=== PATIENT | female | born 1940 | race Caucasian/White ===

== ENCOUNTER 2016-12-30 20:51 | Emergency (ER) | payer OTHER ==
[~2016-12-30] VITALS: Ht 157.5 cm; Wt 68.0 kg
[2016-12-30 21:21] VITALS: BP 150/76
[2016-12-30] MEDS ORDERED: LORazepam 2MG/ML-1ML VIAL IV ONE (22:30)
== END 2016-12-30 23:30 | disposition home or self-care (01) ==
LOC: EDBD 20:51 → ER 20:57
DX: F41.9 Anxiety disorder, unspecified (principal); F17.210 Nicotine dependence, cigarettes, uncomplicated; R41.82 Altered mental status, unspecified; R55 Syncope and collapse; W18.39XA Other fall on same level, initial encounter; Y93.89 Activity, other specified; Y92.090 Kitchen in other non-institutional residence as the place of occurrence of the external cause; Y99.8 Other external cause status
CPT/HCPCS: 36415; 70450; 80320; 96374; 99285; J2060

== ENCOUNTER 2017-01-07 22:42 | Emergency (ER) | payer OTHER ==
[~2017-01-07] VITALS: Ht 162.6 cm; Wt 65.8 kg
[2017-01-07 23:35] LABS: Basophils # (auto) 0 uL; Basophils % (auto) 0.3 % (0.0-2.0); Eosinophils # (auto) 0 uL; Eosinophils % (auto) 0.3 % (0.0-7.0); Hematocrit 42.7 % (36.0-46.0); Hemoglobin 13.7 g/dL (12.2-16.2); Lymphocytes # (auto) 1.2 uL; Lymphocytes % (auto) 13.6 % (10.0-50.0); Mean Corpuscular Hemoglobin 30.7 pg (28.0-32.0); Mean Platelet Volume 7.7 fL (7.4-10.4); Monocytes # (auto) 0.4 uL; Monocytes % (auto) 4.6 % (0.0-12.0); Neutrophils # (auto) 7.3 uL; Neutrophils % (auto) 81.2 % (37.0-80.0); Platelet Count (auto) 391 10^3/uL (140-450); Red Cell Distribution Width 12.6 % (11.6-16.0)
[2017-01-07 23:55] LABS: Albumin 3.9 g/dL (3.4-5.0); BUN/Creatinine Ratio 18.1; Calcium 8.9 mg/dL (8.5-10.1); Potassium 4.7 mmol/L (3.5-5.1)
[2017-01-07 23:58] LABS: INR 1.03 (0.9-1.15); Partial Thromboplastin Time 23.4 sec (22.64-33.71); Prothrombin Time 10.6 sec (9.37-12.3)
[2017-01-07 23:59] LABS: Bilirubin, Total 0.6 mg/dL (0.2-1.0); Total Protein 7.4 g/dL (6.4-8.2)
[2017-01-08] MEDS ORDERED: TRAZ100T2 PO (02:15)
[2017-01-08] MEDS ORDERED: TEMA30CA PO (02:15)
[2017-01-08 03:48] LABS: Urine Bilirubin Negative (Negative); Urine Blood Negative /uL (Negative); Urine Color Yellow (Yellow); Urine Glucose Normal (Normal); Urine Hyaline Cast MANY /lpf (0 - 2); Urine Ketone 2+ (Negative); Urine Mucus MODERATE (None Seen); Urine Nitrite Negative (Negative); Urine RBC 3 /hpf (0 - 4); Urine Squamous Epithelial Cell MOD /hpf (<5); Urine Urobilinogen Normal (Negative)
[2017-01-08 06:47] VITALS: BP 149/90
[2017-01-08] MEDS: PARoxetine 20 MG TAB PO SCH (10:48)
== END 2017-01-08 18:13 | disposition home or self-care (01) ==
LOC: EDBD 22:42 → ER 22:44
DX: F03.90 Unspecified dementia, unspecified severity, without behavioral disturbance, psychotic disturbance, mood disturbance, and anxiety (principal); F20.9 Schizophrenia, unspecified; N39.0 Urinary tract infection, site not specified; F41.9 Anxiety disorder, unspecified; J45.909 Unspecified asthma, uncomplicated; F17.210 Nicotine dependence, cigarettes, uncomplicated; Z88.2 Allergy status to sulfonamides
CPT/HCPCS: 36415; 70450; 80053; 81001; 84484; 85025; 85610; 85730

== ENCOUNTER → 2018-05-06 | Outpatient (CLI) | payer OTHER ==
[~2018-05-06] MED LIST: TEMA30CA PO; TRAZ100T2 PO
[2018-05-06 08:38] LABS: Basophils # (auto) 0.1 uL; Basophils % (auto) 1.4 % (0.0-2.0); Eosinophils # (auto) 0.1 uL; Eosinophils % (auto) 1.7 % (0.0-7.0); Hematocrit 42.7 % (36.0-46.0); Hemoglobin 14.5 g/dL (12.2-16.2); Lymphocytes # (auto) 1.6 uL; Lymphocytes % (auto) 26.8 % (10.0-50.0); Mean Corpuscular Hemoglobin 32.1 pg (28.0-32.0); Mean Corpuscular Volume 94.6 fL (80.0-100.0); Monocytes # (auto) 0.4 uL; Monocytes % (auto) 6.5 % (0.0-12.0); Neutrophils # (auto) 3.7 uL; Neutrophils % (auto) 63.6 % (37.0-80.0); Platelet Count (auto) 245 10^3/uL (140-450); Red Blood Cells 4.51 10^6/uL (4.0-5.20); White Blood Cell 5.8 10^3/uL (4.4-10.8)
[2018-05-06 09:13] LABS: Albumin 4.3 g/dL (3.4-5.0); BUN/Creatinine Ratio 18.2; Bilirubin, Total 0.7 mg/dL (0.2-1.0); Calcium 8.7 mg/dL (8.5-10.1); Potassium 3.9 mmol/L (3.5-5.1); Total Protein 7.5 g/dL (6.4-8.2)
== END | disposition home or self-care (01) ==
LOC: LAB 08:18
PROVIDERS: ATTEND Physician Assistant
DX: Z00.01 Encounter for general adult medical examination with abnormal findings (principal); I10 Essential (primary) hypertension; F41.1 Generalized anxiety disorder; E78.5 Hyperlipidemia, unspecified; G25.2 Other specified forms of tremor; F32.9 Major depressive disorder, single episode, unspecified
CPT/HCPCS: 36415; 80053; 80061; 82270; 85025

== ENCOUNTER 2019-12-05 13:14 | Inpatient (IN) | payer OTHER ==
[~2019-12-05] VITALS: Ht 160 cm; Wt 49.8 kg
[2019-12-05] MEDS: DOBUTamine 1000MCG/ML 250 ML IV SCH (01:10)
[~2019-12-05 13:14] MED LIST changes: -TRAZ100T2 PO; +TRAZ100T3 PO
[2019-12-05] MEDS ORDERED: FUROSEMIDE 20 MG/2 ML VIAL IV ONE (13:30)
[2019-12-05] MEDS ORDERED: ASPirin 81 mg TAB PO ONE (13:30)
[2019-12-05] MEDS ORDERED: DEXTROSE 50% SYRINGE 50 ML IV ONE (13:37)
[2019-12-05] MEDS ORDERED: ACCU-CHEK COMFORT CURVE STRIP VI ONE ×2 (13:45→14:00)
[2019-12-05] MEDS ORDERED: DEXTROSE (50%) 50ML SYRG IV ONE ×2 (13:45→14:00)
[2019-12-05 14:23] LABS: Basophils # (auto) 0 uL; Eosinophils # (auto) 0 uL; Lymphocytes # (auto) 0.7 uL; Mean Corpuscular Hgb Conc. 30.7 g/dL (32.0-36.0); Monocytes # (auto) 0.4 uL; Neutrophils # (auto) 6.2 uL; Nucleated Red Blood Cells % 0.2 %; Red Cell Distribution Width 19.3 % (11.8-14.3)
[2019-12-05 14:25] LABS: Basophils % (auto) 0.4 % (0.0-2.0); Hematocrit 34.8 % (36.0-46.0); Hemoglobin 10.7 g/dL (12.2-16.2); Lymphocytes % (auto) 9.3 % (10.0-50.0); Mean Corpuscular Hemoglobin 27.6 pg (28.0-32.0); Monocytes % (auto) 5.7 % (0.0-12.0); Neutrophils % (auto) 84.6 % (37.0-80.0); Platelet Count (auto) 307 10^3/uL (140-450); Red Blood Cells 3.87 10^6/uL (4.0-5.20); White Blood Cell 7.3 10^3/uL (4.4-10.8)
[2019-12-05 14:28] LABS: INR 2.15 (0.9-1.15); Partial Thromboplastin Time 33.4 sec (23.64-32.05)
[2019-12-05 14:33] LABS: Albumin 3.1 g/dL (3.4-5.0); Calcium 8.2 mg/dL (8.5-10.1)
[2019-12-05 14:39] LABS: BUN/Creatinine Ratio 10.6
[2019-12-05] MEDS ORDERED: cefTRIAXone 1GM/50ML D5W 50 ML IV ONE (16:45)
[2019-12-05] MEDS ORDERED: AZITHROMYCIN 500MG/ 250ML 250 ML IV ONE (16:45)
[2019-12-05] MEDS ORDERED: MORPHINE SULF INJ 2 MG/ML SYRINGE 1ML IV PRN ×2 (17:00)
[2019-12-05] MEDS ORDERED: NITROGLYCERIN 0.4 MG SL TAB SL PRN (17:00)
[2019-12-05] MEDS ORDERED: LORazepam 2MG/ML-1ML VIAL IV PRN (17:00)
[2019-12-05 17:04] LABS: Lactic Acid w/Reflex 9.2 mmol/L (0.4-2.0)
[2019-12-05] MEDS: FAMOTIDINE (10MG/ML) 2ML VL IV SCH (17:16)
[2019-12-05] MEDS ORDERED: hydrALAZINE HCL 20 MG/ML VL IV PRN (18:00)
[2019-12-05] MEDS ORDERED: LABETALOL HCL 5 MG/ML 4ML SYRINGE IV ONE (18:00)
[2019-12-05] MEDS: NOREPINEPHRINE 8 MG/250ML KIT 250 ML IV SCH (19:12)
[2019-12-05] MEDS: FUROSEMIDE 40 MG/4 ML VIAL IV SCH (19:24)
[2019-12-05] MEDS ORDERED: MIDAZOLAM DRIP 50 mg/50mL 50 ML IV SCH (19:59)
[2019-12-05] MEDS ORDERED: ALBUTEROL SULF 2.5 MG/0.5ML(0.5%) NEB SOLN NEB SCH (20:00)
[2019-12-05] MEDS ORDERED: IPRATROPIUM BROM 0.5 MG/2.5ML INH SOL NEB SCH (20:00)
[2019-12-05] MEDS ORDERED: SUCCINYLCHOLINE CHLORIDE 20 MG/ML 10ML VIAL IV ONE ×2 (20:00→21:00)
[2019-12-05] MEDS ORDERED: ETOMIDATE (2MG/ML) 20ML VIAL IV ONE ×2 (20:01→21:00)
[2019-12-05] MEDS ORDERED: CARVEDILOL 3.125 MG TAB PO SCH (22:00)
[2019-12-05] MEDS ORDERED: SODIUM CHLORIDE 0.9% 1,000 ML IV ONE (22:30)
[2019-12-05 22:59] VITALS: BP 90/43
[2019-12-06] VITALS (17 sets, daily range): BP systolic 82–132; BP diastolic 46–68
[2019-12-06] MEDS: ALBUTEROL SULF 2.5 MG/0.5ML(0.5%) NEB SOLN NEB SCH ×4 (01:00→19:18)
[2019-12-06] MEDS: IPRATROPIUM BROM 0.5 MG/2.5ML INH SOL NEB SCH ×4 (01:00→19:17)
[2019-12-06] MEDS: fentaNYL Drip 2500mCg/250mlNS 250 ML IV SCH ×2 (01:10→07:52)
[2019-12-06] MEDS: FUROSEMIDE 40 MG/4 ML VIAL IV SCH ×2 (06:14→18:11)
[2019-12-06] MEDS: DOBUTamine 1000MCG/ML 250 ML IV SCH ×3 (08:03→21:26)
[2019-12-06 08:25] LABS: Albumin 3.1 g/dL (3.4-5.0); Calcium 7.6 mg/dL (8.5-10.1); Potassium 3.9 mmol/L (3.5-5.1)
[2019-12-06 08:30] LABS: BUN/Creatinine Ratio 13.8; Bilirubin, Total 1.4 mg/dL (0.2-1.0)
[2019-12-06 08:42] LABS: Urine Amorphous Crystal FEW /hpf (None Seen); Urine Bacteria NONE SEEN /hpf (None Seen); Urine Blood 3+ /uL (Negative); Urine Hyaline Cast MANY /lpf (0 - 2); Urine Mucus FEW (None Seen); Urine Specific Gravity 1.024 (1.001-1.035); Urine WBC 26 /hpf (0 - 5)
[2019-12-06 08:46] LABS: Basophils # (auto) 0 uL; Basophils % (auto) 0.2 % (0.0-2.0); Eosinophils # (auto) 0 uL; Hematocrit 36.7 % (36.0-46.0); Hemoglobin 11.4 g/dL (12.2-16.2); Lymphocytes # (auto) 0.6 uL; Lymphocytes % (auto) 5.1 % (10.0-50.0); Mean Corpuscular Volume 87.1 fL (80.0-100.0); Monocytes % (auto) 8.7 % (0.0-12.0); Neutrophils # (auto) 9.8 uL; Nucleated Red Blood Cells % 0.4 %; Platelet Count (auto) 313 10^3/uL (140-450); Red Blood Cells 4.21 10^6/uL (4.0-5.20); Red Cell Distribution Width 18.4 % (11.8-14.3); White Blood Cell 11.4 10^3/uL (4.4-10.8)
[2019-12-06] MEDS: cefTRIAXone 1GM/50ML D5W 50 ML IV SCH (09:01)
[2019-12-06] MEDS ORDERED: BUMETANIDE 2.5mg/10ml (0.25 mg/ml) INJ IV ONE (09:30)
[2019-12-06] MEDS: FAMOTIDINE (10MG/ML) 2ML VL IV SCH (09:33)
[2019-12-06] MEDS: AZITHROMYCIN 500MG/ 250ML 250 ML IV SCH (09:36)
--- NOTE | 2019-12-06 12:00 | NUR ---
WOUND CARE NOTE: PATIENT NOTED TO BE INTUBATED IN THE ER. ADDED PATIENT TO SKIN INTEGRITY MONITORING. PATIENT ADMITTED TO [facility] [place] WITH DIAGNOSIS OF BILATERAL SUBDURAL HEMATOMA. CURRENT COLBY SCORE IS 10. PATIENT IS RESTING ON HOSPITAL BED IN THE ER BED 6. UNABLE TO ASSESS SKIN AT THIS TIME, NURSE UNAVAILABLE. WILL IMPLEMENT SKIN/WOUND CARE PLAN PER PROTOCOL. RECOMMENDATIONS: FREQUENT TURN SCHEDULE Q 2 HOURS, PRN CONDITION PERMITS, WITH PRESSURE REDISTRIBUTION USING PILLOWS/WEDGES, BID/PRN APPLICATION WITH MOISTURE BARRIER CREAM, OPTIFOAM GENTLE SACRAL DRESSING, SKIN/WOUND CARE PLAN, DIETARY CONSULT FOR LOW COLBY SCORE 10, CONTINUED MONITORING BY WOUND CARE TEAM.
[2019-12-06] MEDS: NOREPINEPHRINE 8 MG/250ML KIT 250 ML IV SCH (18:52)
--- NOTE | 2019-12-06 21:00 | NUR ---
FAMILY AT BEDSIDE
[2019-12-07] VITALS (20 sets, daily range): BP systolic 86–112; BP diastolic 43–59
[2019-12-07] MEDS: ALBUTEROL SULF 2.5 MG/0.5ML(0.5%) NEB SOLN NEB SCH ×3 (00:27→12:00)
[2019-12-07] MEDS: IPRATROPIUM BROM 0.5 MG/2.5ML INH SOL NEB SCH ×3 (00:27→12:00)
--- NOTE | 2019-12-07 01:00 | NUR ---
PT PULLING AT TUBE, PT REORIENTED TO TIME AND SITUATION
--- NOTE | 2019-12-07 03:00 | NUR ---
CANISTERS AND TUBING CHANGED
--- NOTE | 2019-12-07 05:00 | NUR ---
PARTIAL BED BATH GIVEN
[2019-12-07 06:20] LABS: Basophils # (auto) 0 uL; Basophils % (auto) 0.3 % (0.0-2.0); Eosinophils # (auto) 0 uL; Eosinophils % (auto) 0.6 % (0.0-7.0); Hematocrit 33.5 % (36.0-46.0); Hemoglobin 11.1 g/dL (12.2-16.2); Lymphocytes # (auto) 0.6 uL; Lymphocytes % (auto) 8.4 % (10.0-50.0); Mean Corpuscular Hemoglobin 27.4 pg (28.0-32.0); Mean Corpuscular Hgb Conc. 33.1 g/dL (32.0-36.0); Mean Corpuscular Volume 82.7 fL (80.0-100.0); Monocytes # (auto) 0.6 uL; Monocytes % (auto) 8.5 % (0.0-12.0); Neutrophils # (auto) 6.3 uL; Neutrophils % (auto) 82.2 % (37.0-80.0); Platelet Count (auto) 224 10^3/uL (140-450); Red Blood Cells 4.06 10^6/uL (4.0-5.20); Red Cell Distribution Width 18.2 % (11.8-14.3); White Blood Cell 7.6 10^3/uL (4.4-10.8)
--- NOTE | 2019-12-07 06:24 | NUR ---
Respiratory note: RECEIVED PATIENT ON V12 V200 VENT ORALLY INTUBATED WITH A 7.5 ETT SECURED VIA SHAYNE AT THE 22CM MARKING AT THE LIP, AND MECHANICALLY VENTILATED WITH THE CHARTED SETTINGS. SPO2 95%, LUNG SOUNDS DIM/COARSE T/O, SMALL AMOUNT OF THIN CLEAR SECRETIONS WHEN SUCTIONED. SKIN IS WARM/DRY TO THE TOUCH AND THERE IS AN ABRASION NOTED ON THE LEFT SIDE OF LOWER LIP. NO OTHER SKIN ISSUES NOTED. THERE IS A NGT PLACED IN THE LEFT NARE AND SECURED TO THE NOSE. NO ADVANCE ACCESS LINES NOTED. THERE IS +4 PITTING EDEMA NOTED ON RIGHT ARM, RIGHT ARM ALSO SLIGHTLY WEEPY. NON PITTING EDEMA NOTED IN LEFT ARM. NO EDEMA NOTED IN LOWER EXTREMITIES. NO NEW AM CXR TO ASSESS. PATIENT IS RESPONSIVE TO BOTH VERBAL/TACTILE STIMULI AND IS SEDATED ON FENTANYL DRIP. VENT PLUGGED INTO RED OUTLET AND ALL ALARMS ARE SET AND AUDIBLE. WILL CONTINUE TO ASSESS PATIENT WELL VENTILATOR FUNCTION. MED-NEB RUN INLINE.
[2019-12-07 06:52] LABS: Albumin 2.8 g/dL (3.4-5.0); BUN/Creatinine Ratio 17.3; Calcium 7.1 mg/dL (8.5-10.1); Magnesium 2.1 mg/dL (1.6-2.6); Total Protein 5.6 g/dL (6.4-8.2)
[2019-12-07] MEDS ORDERED: MIDAZOLAM DRIP 50 mg/50mL 50 ML IV ONE (07:35)
[2019-12-07] MEDS: MIDAZOLAM DRIP 50 mg/50mL 50 ML IV SCH ×2 (08:21→09:39)
[2019-12-07] MEDS: FUROSEMIDE 40 MG/4 ML VIAL IV SCH (09:37)
[2019-12-07] MEDS: fentaNYL Drip 2500mCg/250mlNS 250 ML IV SCH (09:38)
[2019-12-07] MEDS: FAMOTIDINE (10MG/ML) 2ML VL IV SCH (09:38)
[2019-12-07] MEDS: DOBUTamine 1000MCG/ML 250 ML IV SCH (09:38)
[2019-12-07] MEDS: cefTRIAXone 1GM/50ML D5W 50 ML IV SCH (09:38)
[2019-12-07] MEDS ORDERED: POTASSIUM CHLORIDE 60 MEQ, LIDOCAINE 1% (LOCAL ANESTH.) 6 ML in SODIUM CHL 0.9% 500 ML IV ONE (10:00)
[2019-12-07] MEDS: AZITHROMYCIN 500MG/ 250ML 250 ML IV SCH (10:24)
[2019-12-07 10:52] LABS: INR 1.79 (0.9-1.15); Partial Thromboplastin Time 34.5 sec (23.64-32.05)
--- NOTE | 2019-12-07 17:09 | NUR ---
Respiratory note: TERMINAL EXTUBATION DONE AT 1705 PER FAMILY'S REQUEST AND DR. DAVILA'S ORDER. PATIENT WAS PLACED ON 2LPM N/C FOR COMFORT. PROCEDURE COMPLETED WITHOUT INCIDENT. GARY SILVER AWARE OF TERMINAL EXTUBATION.
[2019-12-07] MEDS ORDERED: LORazepam 2MG/ML-1ML VIAL IV PRN (18:30)
--- NOTE | 2019-12-07 20:15 | NUR ---
ARRIVAL PT EYES CLOSED IN BED, PUPILS IN POINT REACTIVE TO LIGHT, SLUGGISH, NO VERBAL RESPONSE TO PAINFUL STIMULI, GAG REFLEX PRESENT. NC2L, O2SAT 96%. NO SOB OR DISTRESS, PT SNORING. HR 120'S. IV SITE ON ANTOINE MIDLINE, RAC 20G, AND LAC 20G INTACT AND PATENT. LONGORIA CATHETER DRAINING YELLOW URINE. POC DISCUSSED W/ FAMILY, STATED UNDERSTANDING. SAFETY PRECAUTIONS IN PLACE. WILL CONTINUE TO MONITOR.
--- NOTE | 2019-12-07 21:00 | NUR ---
DR. GARCIA UPDATED.
[2019-12-07] MEDS: MORPHINE SULF INJ 2 MG/ML SYRINGE 1ML IV PRN (22:34)
[2019-12-07] MEDS ORDERED: SIMV-8 PO (23:59)
[2019-12-07] MEDS ORDERED: FURO1TAB31 PO (23:59)
[2019-12-07] MEDS ORDERED: METO25TA93 PO (23:59)
[2019-12-07] MEDS ORDERED: LISI-275 PO (23:59)
[2019-12-07] MEDS ORDERED: ASPI-498 OR (23:59)
[2019-12-07] MEDS ORDERED: CLOP75TA28 PO (23:59)
--- NOTE | 2019-12-08 | NUR ---
PT SNORING, HR 100'S. FAMILY AT BEDSIDE. QUESTIONS ANSWERED, FAMILY STATED UNDERSTANDING. SAFETY PRECAUTIONS IN PLACE. WILL CONTINUE TO MONITOR.
[2019-12-08 05:07] VITALS: BP 89/51
--- NOTE | 2019-12-08 07:32 | NUR ---
Opening Shift Note Assumed care of patient. Patient unresponsive at this time pupils about a 1 fixed and non reactive to light, patient attempted to close right eye when light was flashed to check reaction. Breathing is shallow and grunting with excessive phlegm patient has 2 l NC for comfort, Suctioned outer mouth/ lip area and inner mouth along teeth as patient did not open her mouth. Family at the bed side. Suction hooked up for as needed suctioning, will continue to monitor for changes Q1hr and PRN.
[2019-12-08 09:00] VITALS: BP 102/61
--- NOTE | 2019-12-08 09:30 | NUR ---
SUCTIONED PATIENT: PATIENT TOLERATED WELL. EYES OPEN AND PATIENT MOVING AROUND IF SHE WANTS TO GET UP. AT THIS TIME PATIENTS FAMILY IS NOT REQUESTING ANY MEDICATIONS FOR COMFORT SUCH MORPHINE AND IS REFUSING ATIVAN AT THIS TIME. EDUCATED PATIENTS FAMILY ON COMFORT, PER FAMILY THEY WILL WAIT A LITTLE LONGER BEFORE RECEIVING ANY MEDICATION. MY TELEPHONE EXTENSION WAS PROVIDED IF FAMILY IS TO CHANGE THEIR MIND ON MEDICATIONS OR NEEDS ANYTHING FURTHER.
[2019-12-08 13:00] VITALS: BP 98/63
[2019-12-08] MEDS: MORPHINE SULF INJ 2 MG/ML SYRINGE 1ML IV PRN ×2 (13:34→14:41)
--- NOTE | 2019-12-08 14:59 | NUR ---
assessment Patient is a 79 year old female who is not responding. Per patients daughter Elza who is at bedside prior to admission patient lived home with her who is on hospice with [facility] and was independent. Per Elza patient was driving and taking care of herself and her before she fell ill. Patients PCP is Ashly Guevara. Patient has a fww and a cane at home, but never needed to use them. I informed Elza of patients hospice eval order. Per Elza she would like to use the same hospice as patients is on [facility]. Elza has signed choice letter for [facility]. Harika HERNANDES1 will satisfy order. Elza verbalized understanding and agreed to discharge plan home on hospice. Addendum: 12/08/19 at 1510 by Siena COLE Amended: Links added.
--- NOTE | 2019-12-08 15:24 | NUR ---
D/C planning Per consult for hospice. Information and choice letter was given to family by Siena. Contact [facility] Ph:( [phone]) Fax:) faxed medical records. Per Isi from [facility] order was received and service to start upon d/c day. Transportation has been arrange with [facility] transport Ph:) via gurney with oxygen. GARY Karimi was informed. Addendum: 12/08/19 at 1526 by CARLIE RODRIGUEZ Amended: Links added.
[2019-12-08 16:19] VITALS: BP 98/63
--- NOTE | 2019-12-08 17:00 | NUR ---
REMOVED MIDLINE AND IV. PATIENT TOLERATED WELL.
--- NOTE | 2019-12-08 19:30 | NUR ---
PT EYES CLOSED, CHEST RISING AND FALLING, NC @2L. NO SOB OR DISTRESS. LONGORIA CATHETER DRAINING VIA GRAVITY W/ LIGHT KOREY URINE, 500ML EMPTIED. POC DISCUSSED W/ FAMILY, STATES UNDERSTANDING. SAFETY PRECAUTIONS IN PLACE. WILL CONTINUE TO MONITOR.
--- NOTE | 2019-12-08 19:34 | NUR ---
[facility] here for pt. report given to transport team, copy of facesheet and code status form given. all belongings taken by family.
--- NOTE | 2019-12-08 19:58 | NUR ---
PT LEFT W/ [facility] OUT OF UNIT.
== END 2019-12-08 19:34 | disposition hospice, home (50) | DRG 280 ==
LOC: EDUNIT# 13:14 → EDBD 13:14 → ER 13:19 → TELE 13:20 → TELE-CENTR 12-07 20:22
PROVIDERS: ADMIT Nurse Practitioner Acute Care; ATTEND Internal Medicine
PROC: 5A1935Z Respiratory Ventilation, Less than 24 Consecutive Hours (ICD-10-PCS; principal; 2019-12-06)
PROC: 0BH17EZ Insertion of Endotracheal Airway into Trachea, Via Natural or Artificial Opening (ICD-10-PCS; 2019-12-06)
DX: I21.4 Non-ST elevation (NSTEMI) myocardial infarction (principal); J18.9 Pneumonia, unspecified organism; N17.0 Acute kidney failure with tubular necrosis; G93.41 Metabolic encephalopathy; R57.0 Cardiogenic shock; J96.00 Acute respiratory failure, unspecified whether with hypoxia or hypercapnia; I62.03 Nontraumatic chronic subdural hemorrhage; I62.01 Nontraumatic acute subdural hemorrhage; I50.43 Acute on chronic combined systolic (congestive) and diastolic (congestive) heart failure; K92.2 Gastrointestinal hemorrhage, unspecified; E87.4 Mixed disorder of acid-base balance; G93.1 Anoxic brain damage, not elsewhere classified; I13.0 Hypertensive heart and chronic kidney disease with heart failure and stage 1 through stage 4 chronic kidney disease, or unspecified chronic kidney disease; Z66 Do not resuscitate; E16.2 Hypoglycemia, unspecified; I08.1 Rheumatic disorders of both mitral and tricuspid valves; G93.2 Benign intracranial hypertension; I25.5 Ischemic cardiomyopathy; F17.200 Nicotine dependence, unspecified, uncomplicated; I27.21 Secondary pulmonary arterial hypertension; K72.90 Hepatic failure, unspecified without coma; I25.10 Atherosclerotic heart disease of native coronary artery without angina pectoris; J45.909 Unspecified asthma, uncomplicated; N18.9 Chronic kidney disease, unspecified; Z80.1 Family history of malignant neoplasm of trachea, bronchus and lung; Z83.3 Family history of diabetes mellitus; Z90.710 Acquired absence of both cervix and uterus
CPT/HCPCS: 31500; 36415; 36600; 51702; 70450; 71045; 80053; 81001; 82805; 82962; 83605; 83735; 83880; 84484; 85025; 85610; 85730; 87040; 87070; 87205; 93005; 94002; 94003; 94640; 96365; 96366; 96375; 99291; G0378; J0330; J0696; J2001; J2250; J3490